=== PATIENT | female | born 1985 | race Caucasian/White ===

== ENCOUNTER → 2018-03-10 | Outpatient (CLI) | payer BC | LOC: FIMAGING 07:56 → MERGE 08:15 | PROVIDERS: ATTEND Obstetrics & Gynecology | DX: O09.522 Supervision of elderly multigravida, second trimester (principal) ==

== ENCOUNTER 2018-06-28 22:29 | Inpatient (IN) | payer BC ==
[2018-06-28] MEDS ORDERED: OXYTOCIN/RINGERS LACTATE 1,000 ML IV PRN (22:51)
[2018-06-28] MEDS ORDERED: IBUPROFEN 600 MG TAB PO PRN (22:51)
[2018-06-28] MEDS ORDERED: OXYTOCIN/RINGERS LACTATE 500 ML IV SCH (22:51)
[2018-06-28] MEDS ORDERED: MISOPROSTOL 200 MCG TAB PR PRN (22:51)
[2018-06-28] MEDS ORDERED: LIDOCAINE 1% 300 MG/30 ML SDV SC PRN (22:51)
[2018-06-28] MEDS ORDERED: EPSOM SALT 454 GM TP PRN (22:51)
[2018-06-28] MEDS ORDERED: LR 1,000 ML IV PRN (22:51)
[2018-06-28] MEDS ORDERED: OLIVE OIL 118 ML BTL MISC PRN (22:51)
[2018-06-28] MEDS ORDERED: LR 500 ML IV PRN (22:51)
[2018-06-28 23:18] LABS: PLATELET COUNT 174 10^3/uL (150-400)
[2018-06-28] MEDS ORDERED: AMMONIA AROMATIC 1 EACH AMP IH ONE (23:51)
[2018-06-28] MEDS ORDERED: OLIVE OIL 118 ML BTL MISC ONE (23:51)
[2018-06-28] MEDS ORDERED: LIDOCAINE 1% 300 MG/30 ML SDV ONE (23:51)
[2018-06-28] MEDS ORDERED: TERBUTALINE SULFATE 1 MG/ML VIAL ONE (23:52)
[2018-06-28] MEDS ORDERED: MISOPROSTOL 200 MCG TAB ONE (23:52)
[2018-06-28] MEDS ORDERED: OXYTOCIN 10 UNIT/ML VIAL ONE (23:52)
[2018-06-28] MEDS ORDERED: PHENYLEPHRINE HCL 100 MCG/ML SYR ONE (23:59)
[2018-06-28] MEDS ORDERED: BUPIVACAINE 0.25% 10 ML SDV ONE (23:59)
[2018-06-28] MEDS ORDERED: fentaNYL 100 MCG/2 ML INJ ONE (23:59)
--- NOTE | 2018-06-29 00:01 | PREANESOB ---
Obstetric Pre-Anesthesia Info - General Info Proposed Procedure: Labor epidural : 3 Para: 2 RG: 07/04/18 Gestational Age: 39 week(s) and 1 day(s) - Info Status: Full Term Monitors: External FHR Pattern: Reassuring - Labor Status Cervical Dilation per last OB SVE: 3 Rupture of Membranes Date: 06/28/18 Rupture of Membranes Time: 23:45 Amniotic Fluid Color: Clear PIH: No Magnesium Sulfate in Use: No Indications for Labor Analgesia: Pain Control Labor Epidural: Yes Anesthesia Allergies/Adverse Reactions: Allergy/AdvReac Type Severity Reaction Status Date / Time No Allergies [NKDA] Allergy Verified 06/24/18 16:16 Visit Medications: Generic Name Dose Route Start Last Admin Trade Name Freq PRN Reason Stop Dose Admin Lactated Ringer's 1,000 mls @ 0 mls/hr 06/28/18 22:51 Lr IV 06/29/18 22:50 PRN PRN SEE PROTOCOL CONDITIONS Protocol Per Protocol Lactated Ringer's 500 mls @ 500 mls/hr 06/28/18 22:51 Lr IV PRN PRN Maternal Hypotension Oxytocin/Lactated Ringer's 1,000 mls @ 125 mls/hr 06/28/18 22:51 Pitocin 20 Units/Lr (Premix) IV PRN PRN Post bleeding Oxytocin/Lactated Ringer's 500 mls @ 0 mls/hr 06/28/18 22:51 Pitocin 30 Units/Lr (Premix) IV 12/25/18 22:50 CONT BRANDEE Protocol Per Protocol Ibuprofen 600 mg 06/28/18 22:51 Motrin PO ONCE PRN post , pain Lidocaine HCl 300 mg 06/28/18 22:51 Lidocaine Hcl 1% SC 12/25/18 22:50 ONCE PRN episiotomy Magnesium Sulfate 454 gm 06/28/18 22:51 Epsom Salt TP 12/25/18 22:50 Q1H PRN perineal discomfort Misoprostol 800 - 1,000 mcg 06/28/18 22:51 Cytotec UT ONCE PRN Vaginal Atony/Bleeding Bushnell Oil 118 ml 06/28/18 22:51 Sweet Oil MISC 12/25/18 22:50 ONCE PRN perineal massage Discontinued Medications Generic Name Dose Route Start Last Admin Trade Name Freq PRN Reason Stop Dose Admin Ammonia (Aromatic Spirit) Confirm 06/28/18 23:51 Ammonia Aromatic Administered 06/28/18 23:52 Dose 1 each IH .STK-MED ONE Lidocaine HCl Confirm 06/28/18 23:51 Lidocaine Hcl 1% Administered 06/28/18 23:52 Dose 300 mg .ROUTE .STK-MED ONE Misoprostol Confirm 06/28/18 23:52 Cytotec Administered 06/28/18 23:53 Dose 1,000 mcg .ROUTE .STK-MED ONE Bushnell Oil Confirm 06/28/18 23:51 Sweet Oil Administered 06/28/18 23:52 Dose 118 ml MISC .STK-MED ONE Oxytocin Confirm 06/28/18 23:52 Pitocin Administered 06/28/18 23:53 Dose 40 unit .ROUTE .STK-MED ONE Terbutaline Sulfate Confirm 06/28/18 23:52 Brethine Administered 06/28/18 23:53 Dose 1 mg .ROUTE .STK-MED ONE - Anesthesia History Response to Local Anesthetics: Normal Family Anesthesia History: Negative - Social History Substance Use/Abuse: ETOH, Tobacco - Vital Signs Height/Weight (Nursing): Height 165.1 cm Weight 72.575 kg - Focused Exam Neck exam: FROM Mallampati Score: Class 1 Mouth exam: normal dental/mouth exam Pulmonary: no respiratory distress Cardiovascular: regular rate and rhythym Labs: 06/28/18 22:55 - Plan Consent Signed and on Chart: Yes Patient/Guardian Understands and Agrees to Plan: Yes
[2018-06-29] MEDS ORDERED: fentaNYL 2MCG/ML/BUP 0.1% RTU 100 ML BAG EP ONE (00:20)
[2018-06-29] MEDS ORDERED: PHENYLEPHRINE HCL 100 MCG/ML SYR IVP PRN (00:26)
[2018-06-29] MEDS ORDERED: NALOXONE HCL 0.4 MG/ML INJ IVP PRN (00:26)
[2018-06-29] MEDS ORDERED: fentaNYL 2MCG/ML/BUP 0.1% RTU 100 ML EP SCH (00:30)
[2018-06-29] MEDS ORDERED: LR 500 ML IV SCH (00:30)
--- NOTE | 2018-06-29 01:18 | GHP ---
[f rep st] PREOP HISTORY AND PHYSICAL DATE OF ADMISSION: 06/28/2018 HISTORY UPON ADMISSION: The patient is a 32-year-old, G3, P2 with an estimated due date of 07/04, cu rrently at 39 weeks and 2 days with spontaneous onset of contractions this evening with increasing in tensity, however, not too frequent at the time of admission. The patient was aware the intensity was building and wanted to err on the side of getting into the hospital to be ready for her epidural at the time things really started increasing. The patient has a history of rapid labors x2. The patien t's bag of water was intact upon admission, however, had spontaneous leakage of fluid at approximatel y 2345 with blood-tinged clear fluid. The contractions really started picking up afterwards, and the patient requested placement of the epidural. That is currently being placed now. Patient does have good movement. Contractions now approximately every 3 minutes, strong intensity. Good movement. care has been with [facility] since 19 weeks. [facility] Patient had her 20-week ultrasound with [facility], and anatomy appe ared normal. Patient has a fundal placenta with a marginal cord insertion. Patient had a followup g rowth ultrasound in the third trimester due to the marginal cord. Good growth was confirmed with est imated weight at the 29th percentile. Fluid was normal. The patient had a left foot stress fr acture approximately 24 weeks and was wearing a boot through some of the . Due to a history of IVF, the patient had a echo performed which was normal except the aortic isthmus could not be optimally visualized. They recommended an echocardiogram after delivery and prior to discharge fr om the hospital. The patient opted for a 3-hour GTT as opposed to a screening Glucola as she often d id not pass that with her other pregnancies. The 3-hour GTT was normal. The patient declined RhoGAM at 28 weeks' gestation. Luckily upon admission today the antibody screen is negative. LABS: Include maternal blood type O negative with negative antibody screen. RPR nonreactiv e. Rubella showing low positive immunity. Hepatitis B surface antigen negative. HIV negative. Her urine drug screen was negative. Urinalysis and culture were negative. Pap smear normal with negati ve HPV. Gonorrhea and chlamydia are negative. [id number] was negative. MSAFP negative. As noted a jayson 3-hour GTT was normal. Initial hematocrit 37% with slight dip to 36% but improved to 38% at 35 weeks. Varicella testing was immune. GBS culture was negative. PAST MEDICAL HISTORY: The patient had IVF with this , however, has not had any history of i nfertility. Patient chose this route for gender selection. PAST SURGICAL HISTORY: In February 2017, a hysteroscopy, and in the summer of 2017, egg retrieval. PAST HISTORY: In February 2014, a viable male at 7 pounds 15 ounces delivered at 38 weeks w ith vaginal with an epidural. In December 2015, another viable male at 9 pounds 1 ounce at 39 weeks' gestation, again with vaginal delivery with an epidural. The 2nd labor was less than 3 hours. ALLERGIES: The patient has no known drug allergies. CURRENT MEDICATIONS: Only vitamins with DHA. SOCIAL HISTORY: The patient is , lives with her and their two boys. Current pregnanc y is a girl. Patient is a nonsmoker. No alcohol or drug use. PHYSICAL EXAMINATION: GENERAL: Upon admission, patient is a well-developed, well-nourished white fe male in increasing discomfort with contractions after rupture of membranes. VITAL SIGNS: Initial bl ood pressure 123/79, heart rate 97, temperature 36.8. monitoring reveals baseline in the 130s to 140s with moderate variability and category 1 tracing. Good accelerations noted. CERVIX: Initia l cervical exam at the time of admission, the patient was 3 cm dilated, 50% effaced, at -2 station. That was prior to rupture of membranes which occurred at 2345. The patient will have an exam after c omfortable with the epidural. EXTREMITIES: Moderate edema. ASSESSMENT: Intrauterine at 39 weeks and 2 days, active labor with rupture of membranes. Group B streptococcus was negative. Patient receiving epidural. History of rapid labors. Patient R h negative but partner also Rh negative, and RhoGAM was declined in the . Elective in vitro fertilisation for gender selection. echo did not clear all anatomy, and the patient was advis ed to have an echo on the prior to hospital discharge. History of large for gestational age w ith her 2nd child. Patient's 3-hour glucose tolerance testing was normal. Marginal cord insertion b ut reassuring 3rd trimester growth. PLAN: The patient is getting comfortable with her epidural and then we will check her exam. Expect good progression of labor. Expect vaginal delivery. /[id number]/MODL
--- NOTE | 2018-06-29 01:35 | OBPROG ---
Labor Progress Note Assessment/Plan: Assessment: IUP at 39w2d SOOC, ctxns slowed after LEESA no further leakage GBS neg Plan: 7 cm and BBOW, now AROM clear and 9 cm 06/29/18 01:32 Subjective/Intrapartum Course: 06/29/18 01:33 Pt comfortable with LEESA, exam by RN and pt 7 cm but BBOW. ctxns really spaced after LEESA and pt ok with AROM - done now and cx 9cm/100/0 station - clear Objective: 06/28/18 22:55 Patient ABO/Rh O NEGATIVE 06/28/18 22:55 - SVE Dilation (cm): 9 Effacement (%): 100 Station: 0 Membranes: AROM Amniotic Fluid Color: Clear - Contraction Pattern Assessment Current Contraction Pattern: Irregular (q 4-5 min) - FHR Assessment [place] FHR (bpm): 130 FHR Pattern Variability: Moderate FHR Category: 2 (small variables) Oxytocin Orders Assessment - Pre-Induction/Augmentation Assessment Gestational Age: 39 week(s) and 1 day(s) ICD10 Worksheet Patient Problems: Problems Problem Status Onset Normal labor Acute - ICD10 Problem Qualifiers (1) Normal labor
[2018-06-29] MEDS ORDERED: ceFAZolin 2 GM/DEXTROSE 100 ML IV ONE (03:00)
[2018-06-29] MEDS ORDERED: ACETAMINOPHEN 325 MG TAB PO PRN (03:00)
[2018-06-29] MEDS ORDERED: MEASLES,MUMPS&RUBELLA VACC/PF 0.5 ML VIAL SC ONE ×2 (03:01→10:30)
--- NOTE | 2018-06-29 03:05 | OBDEL ---
Info Type: Vaginal Presentation at Delivery: Vertex L&D Analgesia/Anesthesia Type: Epidural GBS+: No Intrapartum Medications: Generic Name Dose Route Start Last Admin Trade Name Kiara PRN Reason Stop Dose Admin Cefazolin Sodium/Dextrose 100 mls @ 200 mls/hr 06/29/18 03:00 06/29/18 03:00 Ancef IV 06/29/18 03:29 100 mls ONCALL ONE Administration - Hospital Course Intrapartum: 06/29/18 01:33 Pt comfortable with LEESA, exam by RN and pt 7 cm but BBOW. ctxns really spaced after LEESA and pt ok with AROM - done now and cx 9cm/100/0 station - clear Indications for Delivery: Spontaneous Labor Vaginal Delivery - Delivery Provider Delivery Physician/CNM: Arti Zimmerman - Labor and Delivery Onset of Contractions Date: 06/28/18 Onset of Contractions Time: 20:00 Onset of Contractions Type: Spontaneous Rupture of Membranes Date: 06/29/18 Rupture of Membranes Time: 01:28 Rupture of Membranes Type: Artificial Amniotic Fluid Color: Clear Dilation Complete Date: 06/29/18 Dilation Complete Time: 01:57 Placenta Delivery Date: 06/29/18 Placenta Delivery Time: 02:26 Total Hours of Labor: 6 Non-surgical Procedures: Amniotomy Laceration: 1st Degree (midline perineal) Repair: Other (Specify) (none needed) Vaginal Sponge Count Correct: Yes Vaginal Needle Count Correct: Yes Vaginal Sweep Performed: Yes EBL: 400 Delivery Events: Nuchal Cord (x1 loose and reduced), Retained Placenta (slow release of placenta and small fragments up in right fundal area. placenta with marginal/velamentous CI) Data RG: 07/04/18 Gestational Age: 39 week(s) and 2 day(s) [place] Delivery Date: 06/29/18 Delivery Time: 02:10 Sex of Infant: Female (jessa) Score (1 Min): 8 Score (5 Min): 9 ICD10 Worksheet Patient Problems: Problems Problem Status Onset S/P dilation and curettage Acute Retained portions of products of conception following delivery without hemorrhage Acute (spontaneous vaginal delivery) Acute - ICD10 Problem Qualifiers (1) Normal labor
[2018-06-29] MEDS: IBUPROFEN 600 MG TAB PO PRN ×3 (09:57→22:46)
[2018-06-29] MEDS: DOCUSATE SODIUM 100 MG CAP PO SCH (17:17)
[2018-06-30] MEDS: IBUPROFEN 600 MG TAB PO PRN ×2 (05:28→11:41)
--- NOTE | 2018-06-30 08:35 | POSTANESTH ---
Post Anesthetic Evaluation Cardiovascular Status: Normal, Stable, Similar to Pre-Op Cond Respiratory Status: Normal, Stable, Similar to Pre-op Cond. Level of Consciousness/Mental Status: Can Participate in Eval, Alert and Oriented Pain Control: Adequate, Prn Tx Ordered Nausea/Vomiting Control: Adequate, Prn Tx Ordered Complications Possibly Related to Anesthesia: None Noted Notes: Pt seen and examined. Rated pain control as excellent. Now taking APAP for pain control. Back site c/d/i, no e/e/e. Block resolved, able to ambulate. No apparent ill effects from LEESA.
[2018-06-30] MEDS: DOCUSATE SODIUM 100 MG CAP PO SCH (11:41)
[2018-06-30 12:09] VITALS: BP 126/76
--- NOTE | 2018-06-30 14:34 | OBGCSDC ---
General Delivery Information - General Info : 3 Para: 3 Abortions: 0 Type: Vaginal L&D Analgesia/Anesthesia Type: Epidural Admission Date: 06/28/18 Labs: Patient ABO/Rh O NEGATIVE 06/28/18 22:55 Hct 34.1 % (38.0-47.0) L 06/30/18 02:54 - Hospital Course Intrapartum: 06/29/18 01:33 Pt comfortable with LEESA, exam by RN and pt 7 cm but BBOW. ctxns really spaced after LEESA and pt ok with AROM - done now and cx 9cm/100/0 station - clear : 06/30/18 14:33 S) Pt doing well, reports min pain and bleeding. she is ambulating and voiding without difficulty. She is . She desires discharge home today. O) VSS, afebrile constitutional: WNF, A&Ox3 HEENT: normocephalic, atraumatic, supple Heart: RRR, No murmur Chest: CTA-B Breasts: soft, nontender, not engorged, nipples intact/normal Abdomen: Soft, nontender Uterus: Firm at U-2 Lochia: Minimal rubra Perineum: Intact, healing well Extremities: Trace edema, and negative Sabrina's sign Neuro: Grossly normal A) 32-year-old S/P PPD#2 P) Discharge home today Continue Pelvic rest x6wks Discussed danger signs (infection, preeclampsia, depression, heavy bleeding, etc ) RTO in 4/6 weeks Vaginal - Delivery Provider Delivery Physician/CNM: Atri Zimmerman - Diagnosis Labor: Spontaneous Rupture of Membranes Type: Artificial Amniotic Fluid Color: Clear Laceration: 1st Degree (midline perineal) Repair: Other (Specify) (none needed) Delivery Events: Nuchal Cord (x1 loose and reduced), Retained Placenta (slow release of placenta and small fragments up in right fundal area. placenta with marginal/velamentous CI) - Procedures Non-surgical Procedures: Amniotomy - Delivery Non-surgical Procedures: Amniotomy EBL: 400 Data RG: 07/04/18 Gestational Age: 39 week(s) and 3 day(s) [place] Delivery Date: 06/29/18 Delivery Time: 02:10 Sex of Infant: Female Weight (gm): 3318 g Score (1 Min): 8 Score (5 Min): 9 Discharge Information - Discharge Information Condition: Good Instruction/Follow Up: Four Weeks, Six Weeks
== END 2018-06-30 14:46 | disposition home or self-care (01) | DRG 807 ==
LOC: FLD 22:29 → FOB 06-29 05:01
PROVIDERS: ADMIT Obstetrics & Gynecology; ATTEND Obstetrics & Gynecology
DX: O70.0 First degree perineal laceration during delivery (principal); O69.81X0 Labor and delivery complicated by cord around neck, without compression, not applicable or unspecified; O73.0 Retained placenta without hemorrhage; O43.123 Velamentous insertion of umbilical cord, third trimester; O26.893 Other specified pregnancy related conditions, third trimester; Z67.41 Type O blood, Rh negative; Z3A.39 39 weeks gestation of pregnancy; Z37.0 Single live birth
CPT/HCPCS: J0690; J2370; J2590; J3010; J3105